=== PATIENT | female | born 1945 | race Caucasian/White ===

== ENCOUNTER 2018-07-22 19:30 | Inpatient (IN) ==
[2018-07-22] MEDS ORDERED: NS 1,000 ML IV ONE (20:10)
--- NOTE | 2018-07-22 20:13 | Diag Imaging Result Doc PS360 ---
CT HEAD W/O CONTRAST - 07/22/2018 INDICATION: CONFUSION COMPARISON: None FINDINGS: The ventricles and sulci are normal in size and contour. No intracranial mass or hemorrhage. There is mild periventricular white matter chronic microvascular disease. The skull is intact. The sinuses, mastoids, and middle ears are clear. IMPRESSION: Chronic microvascular disease. No acute disease. This exam was performed using automated exposure control, adjustment of mA or kV according to patient size, and/or use of iterative reconstruction technique Electronically signed by Dash Coleman 07/22/2018 8:10 PM
[2018-07-22 20:44] LABS: BASO# 0.01 X1000 (0.0-0.2); BASO% 0.1 % (0.0-0.8); EOS# 0.07 X1000 (0.0-0.7); EOS% 0.8 % (0.0-10.0); HEMATOCRIT 39.1 % (37.0-47.0); HEMOGLOBIN 13.1 g/dL (12.0-16.0); IMM GRAN# 0.03 X1000 (0.0-0.04); IMM GRAN% 0.3 % (0.0-0.5); LYMPH# 1.22 X1000 (1.2-3.4); LYMPH% 13.7 % (20.5-51.1); MCH 29.9 PG (27-31); MCHC 33.5 g/dL (33-37); MCV 89.3 FL (81-99); MONO# 0.88 X1000 (0.11-0.59); MONO% 9.9 % (1.7-9.3); MPV 10.6 FL (7.4-10.4); NEUT# 6.67 X1000 (1.4-6.5); NEUT% 75.2 % (42.2-75.2); PLT 165 X1000 (130-400); RBC 4.38 XMIL (4.2-5.4); RDW 13.9 % (11.5-14.5); WBC 8.88 X1000 (4.8-10.8)
--- NOTE | 2018-07-22 20:46 | Diag Imaging Result Doc PS360 ---
CHEST-1 VIEW - 07/22/2018 INDICATION: weakness COMPARISON: None FINDINGS: The lungs are normally expanded and clear. Heart size and mediastinal contours are normal. No pneumothorax or pleural effusion. IMPRESSION: Negative exam. Electronically signed by Dash Coleman 07/22/2018 8:44 PM
[2018-07-22 21:10] LABS: URINE SOURCE CLEAN CATCH
[2018-07-22 21:11] LABS: AGAP 14; ALBUMIN 4.5 g/dL (3.5-5.0); ALKALINE PHOSPHATASE 79 U/L (32-104); BUN 13 mg/dL (8-22); CHLORIDE 97 mmol/L (98-107); COSMO 274; CREATININE 0.9 mg/dL (0.5-0.9); ESTIMATED GFR > 60; GLUCOSE 162 mg/dL (70-104); GOT 20 U/L (10-30); GPT 23 U/L (10-36); SODIUM 135 mmol/L (136-145); TCO2 24 mmol/L (25-35); TOTAL BILIRUBIN 1.26 mg/dL (0.20-1.00); TOTAL PROTEIN 6.8 g/dL (6.3-8.3)
[2018-07-22 21:13] LABS: BILIRUBIN URINE NEGATIVE (NEGATIVE); BLOOD URINE NEGATIVE (NEGATIVE); COLOR YELLOW; GLUCOSE URINE NEGATIVE (NEGATIVE); KETONE URINE TRACE mg/dL (NEGATIVE); LEUKOCYTES URINE TRACE (NEGATIVE); NITRITE URINE NEGATIVE (NEGATIVE); PROTEIN URINE TRACE mg/dL (NEGATIVE); SP GRAVITY URINE 1.006; TURBIDITY URINE CLEAR (CLEAR); UR EPITHELIAL CELLS <10 /HPF (<10); URINE BACTERIA NEGATIVE /HPF; URINE RBC <10 /HPF (<10); URINE WBC <10 /HPF (<10); UROBILINOGEN URINE NORMAL (NORMAL)
[2018-07-22] MEDS ORDERED: LEVAQUIN 750 MG/D5W 750 MG/150 ML IVPB IV ONE (22:34)
--- NOTE | 2018-07-22 22:35 | PROVIDER DOCUMENTATION ---
This chart was entered by Domenico Flaherty Scribe, acting as scribe for Estevan Quintana MD. HPI-Syncope/Dizziness - General Chief Complaint: Stroke-Like Symptoms Stated Complaint: STROKE SX Time Seen by Provider: 07/22/18 19:37 Source: patient - History of Present Illness-Syncope/Dizzy Nature of Presenting Problem: Pt is a 73 y/o F presents to the ED with dizziness that began this morning after getting up out of bed and for confusion. Pt reports the dizziness is gone now. The is presents and he says the dizziness is upon standing. He reports generalized weakness to the point of trouble walking on her own. reports pt is weak, unable to get up from the bed or chair without help. states she fell 1 month ago. He says no speech changes but has repeated stuff though. Pt denies urinary symptoms, abdominal pain, chest pain, N/V. Prior Episodes: reports: no prior history Onset/Duration: reports: this afternoon Timing: reports: gone now Position/Activity at time of episode: reports: standing Symptoms prior to episode: reports: none Context: reports: unknown Loss of Consciousness: no loss of consciousness Location of injury. (If syncope resulted in an injury.): reports: none Current Symptoms: reports: weakness, dizzy. denies: fever, chills, short of breath, abdominal pain, nausea, vomiting, shoulder pain, headache, blurred vision - Dizziness Dizziness Related Current/Associated Symptoms: reports: none/feels normal, weakness, dizzy. denies: nausea/vomiting, ringing/roaring in ears, sense of spinning, syncope, chronic dizziness Any recent trauma/injury?: reports: minor Modifying Factors: improves with: nothing Patient usually:: reports: walks without assistance Review of Systems - Adult - REVIEW OF SYSTEMS - ADULT Constitutional: denies: chills, fever Eyes: reports: no symptoms reported Ears, Nose, Mouth & Throat: denies: ear discharge, ear pain Cardiovascular: denies: chest pain, edema Respiratory: denies: cough, shortness of breath Gastrointestinal: denies: abdominal pain, nausea, vomiting Genitourinary: denies: dysuria, discharge, flank pain Musculoskeletal: denies: back pain, neck pain Integumentary: reports: no symptoms reported Neurological: reports: dizziness/vertigo. denies: headache/migraines Psychiatric: reports: anti-depressant use. denies: anxiety, alcohol/drug depe ndence, depression Endocrine: denies: change in skin pigment, excessive sweating Hematologic/Lymphatic: reports: no symptoms reported Allergic/Immunologic: reports: no symptoms reported All Other Systems: Reviewed and Negative Past History - Adult - PAST MEDICAL HISTORY-ADULT Review of Records: reports: Old Records Reviewed, Nursing Assessment Review, Medications Reviewed - SOCIAL HISTORY Smoking: non-smoker Living Situation: family Physical Exam-General - PHYSICAL EXAM-ADULT Initial Vital Signs Reviewed: Yes - CONSTITUTIONAL General Appearance: appears well, alert, other ([id number] confused) - EYES Eyes: PERRL/EOMI, pink conjunctivae - HEAD, EARS, NOSE, MOUTH & THROAT HENMT: moist mucous membranes, normal ENT inspection, pharynx normal - NECK Neck: non-tender, full range of motion, supple, normal inspection - RESPIRATORY Respiratory: lungs clear, normal breath sounds, no pleuratic chest pain, no respiratory distress, no accessory muscle use - CARDIOVASCULAR Cardiovascular: normal peripheral pulses, tachycardia - GASTROINTESTINAL (ABDOMEN) Abdominal Exam: normal bowel sounds, non tender, soft - MUSCULOSKELETAL Back Exam: normal inspection, no CVA tenderness, no vertebral tenderness Extremity: non-tender, normal inspection, no pedal edema - SKIN Integumentary: normal color, normal turgor, warm/dry - NEUROLOGIC Neurologic: grossly normal, no motor/sensory deficits - PSYCHIATRIC Psych/Mental Status: normal mood/affect, normal thought content, normal thought process, oriented x 3 Progress - PLAN OF CARE/RESULTS Progress/Plan/Lab Results: Vital Signs - 8 hr 07/22/18 19:35 Temperature 99.8 F H Pulse Rate 116 H Respiratory Rate 18 Blood Pressure 162/69 O2 Sat by Pulse Oximetry 91 L 07/22/18 20:50 Influenza Screen - Final Nasopharyngeal Laboratory Results - last 24 hr 07/22/18 07/22/18 07/22/18 19:38 19:55 19:55 WBC 8.88 RBC 4.38 Hgb 13.1 Hct 39.1 MCV 89.3 MCH 29.9 MCHC 33.5 RDW Std Deviation 13.9 Plt Count 165 MPV 10.6 H Immature Gran % (Auto) 0.3 Neut % (Auto) 75.2 Lymph % (Auto) 13.7 L [place] % (Auto) 9.9 H Eos % (Auto) 0.8 Baso % (Auto) 0.1 Immature Gran # (Auto) 0.03 Neut # (Auto) 6.67 H Lymph # (Auto) 1.22 Izard # (Auto) 0.88 H Eos # (Auto) 0.07 Baso # (Auto) 0.01 Sodium 135 L Potassium 4.0 Chloride 97 L Carbon Dioxide 24 L Anion Gap 14 BUN 13 Creatinine 0.9 Estimated GFR/1.73 m2 > 60 BUN/Creatinine Ratio 14 Glucose 162 H POC Glucose 183 H Calculated Osmolality 274 Calcium 10.0 Total Bilirubin 1.26 H AST 20 ALT 23 Alkaline Phosphatase 79 Troponin T Tjh-P-Sdgfqekbmze Pept Total Protein 6.8 Albumin 4.5 Globulin 2.3 Albumin/Globulin Ratio 2.0 TSH Urine Source Urine Color Urine Turbidity Urine pH Ur Specific [place] Urine Protein Ur Glucose (Stick) Ur Ketones (Stick) Urine Blood Urine Nitrite Urine Bilirubin Urobilinogen Dipstick Urine Leukocytes Urine WBC (Auto) Urine RBC (Auto) U Epithel Cells (Auto) Urine Bacteria (Auto) 07/22/18 07/22/18 07/22/18 19:55 19:55 19:55 WBC RBC Hgb Hct MCV MCH MCHC RDW Std Deviation Plt Count MPV Immature Gran % (Auto) Neut % (Auto) Lymph % (Auto) Iz[place] % (Auto) Eos % (Auto) Baso % (Auto) Immature Gran # (Auto) Neut # (Auto) Lymph # (Auto) [place] # (Auto) Eos # (Auto) Baso # (Auto) Sodium Potassium Chloride Carbon Dioxide Anion Gap BUN Creatinine Estimated GFR/1.73 m2 BUN/Creatinine Ratio Glucose POC Glucose Calculated Osmolality Calcium Total Bilirubin AST ALT Alkaline Phosphatase Troponin T < 0.010 Vrm-M-Iwmoqeegaif Pept 58 Total Protein Albumin Globulin Albumin/Globulin Ratio TSH 1.07 Urine Source Urine Color Urine Turbidity Urine pH Ur Specific [place] Urine Protein Ur Glucose (Stick) Ur Ketones (Stick) Urine Blood Urine Nitrite Urine Bilirubin Urobilinogen Dipstick Urine Leukocytes Urine WBC (Auto) Urine RBC (Auto) U Epithel Cells (Auto) Urine Bacteria (Auto) 07/22/18 19:55 WBC RBC Hgb Hct MCV MCH MCHC RDW Std Deviation Plt Count MPV Immature Gran % (Auto) Neut % (Auto) Lymph % (Auto) [place] % (Auto) Eos % (Auto) Baso % (Auto) Immature Gran # (Auto) Neut # (Auto) Lymph # (Auto) [place] # (Auto) Eos # (Auto) Baso # (Auto) Sodium Potassium Chloride Carbon Dioxide Anion Gap BUN Creatinine Estimated GFR/1.73 m2 BUN/Creatinine Ratio Glucose POC Glucose Calculated Osmolality Calcium Total Bilirubin AST ALT Alkaline Phosphatase Troponin T Uhl-V-Lqsmanimjko Pept Total Protein Albumin Globulin Albumin/Globulin Ratio TSH Urine Source CLEAN CATCH Urine Color YELLOW Urine Turbidity CLEAR Urine pH 7.0 Ur Specific [place] 1.006 Urine Protein TRACE A Ur Glucose (Stick) NEGATIVE Ur Ketones (Stick) TRACE A Urine Blood NEGATIVE Urine Nitrite NEGATIVE Urine Bilirubin NEGATIVE Urobilinogen Dipstick NORMAL Urine Leukocytes TRACE A Urine WBC (Auto) <10 Urine RBC (Auto) <10 U Epithel Cells (Auto) <10 Urine Bacteria (Auto) NEGATIVE Orders Category Date Time Status Nursing- Obtain EKG ONCE Care 07/22/18 20:[address] HEAD W/O CONTRAST [CT] Stat Exams 07/22/18 19:39 Completed CTA [CT ANGIOGRM PULMONARY ARTERIES] [CT] Stat Exams 07/22/18 22:33 Ordered cxr [CHEST-1 VIEW] [RAD] Stat Exams 07/22/18 20:08 Completed ABG [RESP] Stat Lab 07/22/18 22:34 Ordered BLOOD CULTURE [BLDCUL] Stat Lab 07/22/18 19:55 Ordered CBC WITH ELECTRONIC DIFF [HEME] Stat Lab 07/22/18 19:55 Completed COMPREHENSIVE METABOLIC PANEL [CHEM] Stat Lab 07/22/18 19:55 Completed INFLUENZA SCREEN A/B Stat Lab 07/22/18 20:50 Completed PRO B-NATRIURETIC PEPTIDE Stat Lab 07/22/18 19:55 Completed TROPONIN T Stat Lab 07/22/18 19:55 Completed TSH Stat Lab 07/22/18 19:55 Completed UA [URINALYSIS] [URINALYSIS] Stat Lab 07/22/18 19:55 Completed URINE CULTURE [RM] Routine Lab 07/22/18 19:55 Received 0.9% Sodium Chloride Inj [Ns] 1,000 ml Med 07/22/18 20:10 Discontinued IV 999 mls/hr Levaquin 750 mg/D5w IV Now Med 07/22/18 22:34 Ordered Levofloxacin 750 mg/D5w [Levaquin 750 mg/D5w] 750 mg in 150 ml IV NOW EKG [EKG] Stat Ther 07/22/18 20:09 Ordered Result Diagrams: 07/22/18 19:55 07/22/18 19:55 - EKG 1 Time of EKG reading by physician:: 19:58 EKG Read and Signed by:: Estevan Quintana EKG Interpretation (*Must complete 3 of following elements*): Abnormal Rate: 116 Rhythm: Sinus tachy QRS: LVH Comments: Inferior and Anterior infarct, age undetermined - XRAY 1 XRAY Study: Chest Impression: Normal (CHEST-1 VIEW - 07/22/2018 INDICATION: weakness COMPARISON: None FINDINGS: The lungs are normally expanded and clear. Heart size and mediastinal contours are normal. No pneumothorax or pleural effusion. IMPRESSION: Negative exam. Electronically signed by Dash Coleman 07/22/2018 8:44 PM) - CT/MRI 1 CT Study: Head Impression: Normal (CT HEAD W/O CONTRAST - 07/22/2018 INDICATION: CONFUSION COMPARISON: None FINDINGS: The ventricles and sulci are normal in size and contour. No intracranial mass or hemorrhage. There is mild periventricular white matter chronic microvascular disease. The skull is intact. The sinuses, mastoids, and middle ears are clear. IMPRESSION: Chronic microvascular disease. No acute disease. This exam was performed using automated exposure control, adjustment of mA or kV according to patient size, and/or use of iterative reconstruction technique Electronically signed by Dash Coleman 07/22/2018 8:10 PM) - CONSULTS/PCP/HOSPITALIST Notification #1 *Consult/PCP/Hospitalist*: Hosptialist-[place] Time Discussed: 22:32 Reason/Comments: admission Consult Disposition: Admit (accepts) Departure - Departure Date of Disposition Decision: 07/22/18 Time of Disposition Decision: 22:35 DIAGNOSIS: Weakness, Hypoxia Disposition: ADMITTED INPATIENT 09 Certified Medical Emergency: Emergent Condition: Stable Referrals and Follow-Ups: Alcides Valera MD [Primary Care Provider] - - Critical Care Note This patient required my direct & personal management of CC.: No Attestation - Physician/ MANDO Attestation Patient care was provided by Advanced Practice Provider:: No The physician spent face to face time with patient:: Yes Advanced Practice Provider documentation review:: Supervising physician onsite and consulted in the evaluation and care of this patient. The physician did have a face to face encounter with the patient. This chart was documented by the indicated scribe, (Domenico Flaherty Scribe) and accurately reflects the services I performed and decisions made by me, Estevan Quintana MD, as attested by the provider's signature.
[2018-07-22 22:49] LABS: ALLEN TEST YES; BE 1.8 mmoll (-3.0-3.0); BLOOD TYPE ARTERIAL; HCO3-(ACT) 26.3 mmoll (20.0-26.0); METHB 1.2 % (0.0-1.5); O2(CT) 16.7 mL/dL (15.0-23.0); O2HB 95.9 % (95.0-99.0); PCO2(98.6) 37 mmHg (35-45); PO2(98.6) 90 mmHg (60-100); SAMPLE BLOOD; SAO2 99.1 % (95.0-100.0); THB 12.3 g/dL (11.5-17.4); pH(98.6) 7.45 (7.35-7.45)
[2018-07-22 22:50] LABS: MODALITY CANNULA
--- NOTE | 2018-07-23 00:44 | HISTORY AND PHYSICAL ---
PHYSICIAN: Patient of Dr. Alcides Valera. REASON FOR ADMISSION: Intermittent confusion today. HISTORY OF PRESENT ILLNESS: Ms. Katherine Stuart is a 73-year-old woman with past medical history of type 2 diabetes, seasonal allergic rhinitis, rheumatoid arthritis, hypertension, hypothyroidism, who was brought in by her on account of her being intermittently confused with generalized weakness since the early hours of this morning. He states that when she woke up he had to lift her out of bed and noticed that she was very unsteady on her feet. After sitting down and over the next few hours she became very confused but a few hours later she returned back to baseline and was lucid and then a few hours later she reverted back to confusion and this went on 3-4 times with her going back and forth with lucidity and confusion. He says he did not notice any facial drooping. He did not notice any slurred speech or any focal weakness on either side. The patient reports that for the last 1 month she has been getting progressively weak. She denies any shortness of breath per se, but states that she has been having over the last 2 weeks oculonasal pruritus and sneezing with intermittent cough worse at night. The cough is dry. She denies any orthopnea or PND. She says each time she gets out of bed she still feels tired and weak. Her says she does not snore profoundly and has not witnessed any apneic spells. She denies any chest pain or palpitations or any anginal type symptoms. She denies any GI or complaints. Other than neck pain, she denies any rash or arthralgia. No polyuria or polydipsia. No visual symptoms. No fever or chills. No myalgias or rash. REVIEW OF SYSTEMS: Twelve-system review was done. Positive findings per HPI. Patient did say that a month ago she did fall and had a hard hit to the left side of her head but a CAT scan was done at that time. I asked her if the weakness had occurred after this, but she said she had been weak in her legs prior to the fall in [place]. Patient did mention that she took NyQuil last night, 1 cup of NyQuil because of a cough. ALLERGIES: To no medication. MEDICATIONS: Home medications have yet to be officially reconciled, but on a pharmacy list she has Bydureon, folic acid, Amaryl, Januvia, levothyroxine, lisinopril, metformin, Singulair, Orencia, ranitidine just to mention a few. SURGICAL HISTORY: Consists of cholecystectomy and breast reduction. FAMILY HISTORY: Negative for heart attacks or diabetes, but positive history of stroke in mother. SOCIAL HISTORY: She does not smoke, drink or do drugs. . Lives with her . LAB WORK: Patient has a white count of 8000. Hemoglobin and hematocrit 13 and 39. Platelets 165. Normal differential. Sodium is 135. BUN 13. Creatinine 0.9. Glucose 162. Troponin is negative. ProBNP is normal. TSH is normal. Urinalysis: Trace ketones, trace protein, trace leukocyte. ABG is normal. Head CT shows chronic microvascular disease located in the periventricular areas. Chest film is clear. Respiratory screen is negative. EKG pending. CT angiogram is pending and this was ordered because patient was mildly hypoxic. PHYSICAL EXAMINATION: VITAL SIGNS: Blood pressure 162/69, heart rate 116, temperature is 99.8, respirations 18. She is 91% on room air. GENERAL: She is a pleasant, elderly woman who is not in acute distress, is A and O times 3. Normal mood and affect. HEENT: Head is normocephalic, atraumatic. Eyes: PERRL. EOMI. She is anicteric but pale. ENT and oropharynx exams grossly normal. No central cyanosis. No oropharyngeal exudates. No oral ulcers. NECK: Supple. No JVD. No carotid bruit or thyromegaly. She has no cervical or supraclavicular lymph nodes. CHEST: Questionable few basilar crepitations, more on the right than left. No wheezes. Good air entry in both lung alanis. CARDIOVASCULAR: First and second heart sounds heard. No gallops, murmurs or rubs. Rhythm is regular. ABDOMEN: Full, soft. No tenderness or megaly. Bowel sounds are normal. RECTAL: Exam deferred at this time. EXTREMITIES: The patient has good pulses distally, regular rhythm, symmetrical. No edema, clubbing or peripheral cyanosis. No tremors. NEUROLOGICAL: Cranial nerves II through XII appear intact. No gross focal deficits. SKIN: Intact. No breakdown or erythema. MUSCULAR: No muscle tenderness. ASSESSMENT: 1. Intermittent confusion. Etiology of this is yet to be discerned. Could be related to hypoxia which could be secondary to a possible PE versus poorly controlled asthma triggered by seasonal allergic rhinitis. Also, her symptoms could be secondary to rheumatoid lung. Patient's confusion since it is waxing and waning could be related to a TIA or a cerebrovascular disease especially since patient has documented microvascular disease on CT. Medications could also be playing a role here. We will keep patient overnight, run an MRI to confirm or refute cerebrovascular disease as an etiology. We will treat patient as if she has poorly controlled asthma and see if her symptoms improve. We will recommend ep specialist, i.e. Dr. Greenwood, to see patient for outpatient sleep study. CT angiogram as I stated before is pending and if it is positive for PE we will treat accordingly. Withhold any potentially neurotoxic medications. 2. Type 2 diabetes. We are going to start patient on a sliding scale only. 3. Hypertension. 4. Rheumatoid arthritis. 5. Hypothyroidism. Patient has generalized weakness. Also needs to be worked up related to hypoxemia. We will also check patient for possible orthostatic changes. cc: MD Alcides Jimenes MD [facility] HOSPITALDanielle
[2018-07-23] MEDS ORDERED: ZOFRAN IV PRN (01:13)
[2018-07-23] MEDS ORDERED: ASPIRIN PO ONE (01:13)
[2018-07-23] MEDS ORDERED: PREDNISONE PO ONE (01:13)
[2018-07-23] MEDS ORDERED: TYLENOL PO PRN (01:13)
[2018-07-23 01:50] LABS: BASO# 0.01 X1000 (0.0-0.2); BASO% 0.1 % (0.0-0.8); EOS# 0.07 X1000 (0.0-0.7); EOS% 0.9 % (0.0-10.0); HEMATOCRIT 37.7 % (37.0-47.0); HEMOGLOBIN 12.5 g/dL (12.0-16.0); LYMPH# 1.47 X1000 (1.2-3.4); LYMPH% 19.6 % (20.5-51.1); MCH 29.8 PG (27-31); MCHC 33.2 g/dL (33-37); MCV 89.8 FL (81-99); MONO% 9.3 % (1.7-9.3); MPV 9.8 FL (7.4-10.4); NEUT# 5.25 X1000 (1.4-6.5); NEUT% 70.1 % (42.2-75.2); PLT 154 X1000 (130-400); RDW 13.9 % (11.5-14.5)
[2018-07-23 02:03] LABS: AGAP 10; ALB/GLOB RATIO 1.6; ALBUMIN 4.1 g/dL (3.5-5.0); ALKALINE PHOSPHATASE 68 U/L (32-104); BUN 10 mg/dL (8-22); CALCIUM 9.4 mg/dL (8.8-10.2); CHLORIDE 102 mmol/L (98-107); COSMO 276; CREATININE 0.8 mg/dL (0.5-0.9); ESTIMATED GFR > 60; GLUCOSE 153 mg/dL (70-104); GOT 14 U/L (10-30); GPT 20 U/L (10-36); MAGNESIUM 1.5 mg/dL (1.5-2.7); POTASSIUM 3.7 mmol/L (3.5-5.1); SODIUM 137 mmol/L (136-145); TCO2 25 mmol/L (25-35); TOTAL BILIRUBIN 1.29 mg/dL (0.20-1.00); TOTAL PROTEIN 6.6 g/dL (6.3-8.3)
[2018-07-23] MEDS: DUONEB (A & A) INH SCH ×4 (03:15→22:04)
[2018-07-23] MEDS: NS 1,000 ML IV SCH ×2 (03:44→14:49)
[2018-07-23] MEDS: LOVENOX SUBQ SCH (03:45)
[2018-07-23] MEDS: FLONASE NAS SCH ×2 (03:45→20:57)
[2018-07-23] MEDS: HUMALOG SUBQ SCH ×4 (06:31→20:57)
--- NOTE | 2018-07-23 07:25 | Diag Imaging Result Doc PS360 ---
EXAM: CT ANGIOGRM PULMONARY ARTERIES INDICATION: sob r/o PE TECHNIQUE: This exam was performed using automated exposure control, adjustment of mA or kV according to patient size, and/or use of iterative reconstruction technique. Thin section axial images and 3-D MIPS were obtained. COMPARISON: None. FINDINGS: There is no evidence of pulmonary embolism and there is no aortic dissection or aneurysm. There is no cardiomegaly. There is no evidence of significant mediastinal or hilar lymphadenopathy. There is minimal patchy scarring at the peripheries of both lungs. There are a few miniscule nodular densities at the lung peripheries (for instance on image 158 of series 5 at the right lung base). There are all around 4 mm or less and probably represent noncalcified granulomata. The lungs are clear, otherwise. There is no pleural fluid collection and no pneumothorax. Limited views of the upper abdomen reveals mild hepatic steatosis. IMPRESSION: Incidental/nonacute findings detailed above. No evidence of pulmonary embolism or other definite acute chest pathology. Electronically signed by Alcides Smith 07/23/2018 7:23 AM
--- NOTE | 2018-07-23 07:59 | EKG Report ---
Test Performed on : 07/22/2018 7:58:42 PM Test Reason : Blood Pressure : / mmHG Vent. Rate : 116 BPM Atrial Rate : 116 BPM P-R Int : 174 ms QRS Dur : 070 ms QT Int : 316 ms P-R-T Axes : 036 -21 -01 degrees QTc Int : 439 ms Sinus tachycardia. Minimal voltage criteria for LVH, may be normal variant Inferior infarct , age undetermined Anterior infarct , age undetermined Abnormal ECG No previous ECGs available Unconfirmed Result
--- NOTE | 2018-07-23 09:17 | Diag Imaging Result Doc PS360 ---
EXAM: MRI BRAIN W/WO CONTRAST - 07/23/2018 HISTORY: encephalopathy in RA pt TECHNIQUE: MRI brain without and with contrast. Images are obtained prior to and following gadolinium ministration. COMPARISON: 07/22/[address] head FINDINGS: There are some chronic microvascular ischemic changes. The diffusion weighted images show no areas of restricted diffusion (no evidence of acute infarct). There are no other substantial signal abnormalities identified. There is no abnormal enhancement identified. IMPRESSION: Chronic microvascular ischemic changes. No visible acute intracranial abnormality. Electronically signed by Kedar Downs 07/23/2018 9:14 AM
[2018-07-23] MEDS: PREDNISONE PO SCH (09:35)
[2018-07-23] MEDS: PRINIVIL PO SCH (09:35)
[2018-07-24] MEDS: LOVENOX SUBQ SCH (02:05)
[2018-07-24] MEDS: DUONEB (A & A) INH SCH ×2 (03:58→10:00)
--- NOTE | 2018-07-24 05:16 | DISCHARGE SUMMARY ---
ADMISSION DATE: 07/23/2018 DISCHARGE DATE: DISCHARGE DIAGNOSIS: Encephalopathy, unclear etiology. Although she was on an antidepressant which she has stopped about a couple weeks ago. HOSPITAL COURSE: She came in with confusion and really unclear etiology. Her outpatient workup was negative. She was not particularly hypoxic. No UTI. No pneumonia. CT angiogram was negative. Brain MRI the next day was negative. When I saw her the next day, she essentially had resolved. No major issues. She was alert and oriented x3. She had a nonfocal neurological exam. She was a little bit jittery, but she had gotten prednisone the night before for asthma exacerbation. At this point, though, I feel like she is stable to go home and resume her medications, and follow up with her regular doctor and resume her antidepressant, which is not listed on her home medications, so I am not exactly sure what she had discontinued. Follow up with Dr. Valera for further evaluation. DISCHARGE MEDICATIONS: Aspirin 81 daily, exenatide daily, folic acid 1 daily, glimepiride 4 b.i.d., hydrochlorothiazide 25 daily, Januvia 100 daily, Synthroid 75 daily, lisinopril 20 daily, metformin 1 g b.i.d., methotrexate as directed, 2.5 mg, not quite clear what the dose is, she takes that weekly, Proventil, Welchol 625 b.i.d., and Zantac 150 daily. DISCHARGE CONDITION: Stable. cc: MD Alcides Francois MD
[2018-07-24] MEDS: HUMALOG SUBQ SCH (06:22)
[2018-07-24] MEDS ORDERED: FOLIC ACID PO SCH (09:00)
[2018-07-24] MEDS ORDERED: ASPIRIN EC PO SCH (09:00)
[2018-07-24] MEDS ORDERED: SYNTHROID PO SCH (09:00)
[2018-07-24] MEDS: PREDNISONE PO SCH (09:43)
[2018-07-24] MEDS: PRINIVIL PO SCH (09:43)
[2018-07-24 11:39] VITALS: BP 164/66
== END 2018-07-24 12:43 | disposition home health service (06) | DRG 71 ==
LOC: ED 19:30 → SUATTDRO 07-23 00:29 → 3N 07-23 00:29
PROVIDERS: ATTEND Internal Medicine
CPT/HCPCS: 70450; 70553; 71010; 71045; 71275; 80053; 81001; 82550; 82805; 82948; 83735; 83880; 84443; 84484; 85025; 87040; 87088; 87275; 87276; 87804; 93005; 94640; 94760; 94761; 96360; 99285; A9270; A9579; J1650; J1815; J7030; J7506; J7512; Q9967; XXXXX